=== PATIENT | male | born 1995 | race Two or more races ===

== ENCOUNTER 2018-04-29 16:31 | Outpatient (CLI) | payer OTHER | END 2018-04-29 16:41 | disposition home or self-care (01) | LOC: LAB 16:31 | DX: J02.8 Acute pharyngitis due to other specified organisms (principal); J20.0 Acute bronchitis due to Mycoplasma pneumoniae; J11.1 Influenza due to unidentified influenza virus with other respiratory manifestations ==

== ENCOUNTER 2018-07-16 08:45 | Outpatient (CLI) | payer OTHER | END 2018-07-16 09:45 | disposition home or self-care (01) | LOC: LAB 08:45 | DX: J11.1 Influenza due to unidentified influenza virus with other respiratory manifestations (principal); J11.89 Influenza due to unidentified influenza virus with other manifestations ==

== ENCOUNTER → 2019-02-09 | Emergency (ER) | payer OTHER ==
[~2019-02-09] VITALS: Ht 157.5 cm; Wt 70.3 kg
== END | disposition left against medical advice (07) ==
LOC: ER 20:12
DX: R41.0 Disorientation, unspecified (principal)